=== PATIENT | female | born 1975 | race Caucasian/White ===

== ENCOUNTER → 2018-08-14 | Outpatient (CLI) | payer OTHER ==
[~2018-08-14] MED LIST: GADOTERATE 7.5 MMOL/15ML VIAL. IVP ONE; IBUP-1027 PO; L.AC1CAP6 PO; OMEP20CA10 PO; SUMA100T4 PO
--- NOTE | 2018-08-14 15:52 | KCIC ---
MRI of the Brain without and with Contrast 08/14/2018 Clinical History: Right arm numbness. Decreased sensation in finger tips. Progressive headaches. Right facial numbness. Technique: Unenhanced T1-weighted sagittal and axial and FLAIR, T2-weighted, gradient echo and diffusion-weighted axial images of the brain were obtained. After the intravenous administration of 12 cc of Gadavist, enhanced T1-weighted axial and coronal images of the brain were obtained. Findings: The ventricles and sulci are within normal limits in size and configuration. No area of abnormal signal intensity is seen involving the brain parenchyma. No abnormal area of contrast enhancement is seen. No extra-axial fluid collection is noted. There is no MRI evidence of acute ischemia/infarction. Mild mucosal thickening in seen scattered throughout the paranasal sinuses. There are minimal bilateral mastoid effusions. Normal flow voids are seen within the major vascular structures surrounding the brain parenchyma. Impression: 1. Negative MRI of the brain. 2. Mild paranasal sinus and mastoid disease. Electronically signed by: Gaurang Luna MD (08/14/2018 3:49 PM) [email or web address]
--- NOTE | 2018-08-14 15:56 | KCIC ---
MRI of the cervical spine without and with contrast 08/14/2018 CLINICAL HISTORY: Right arm numbness. Decreased sensation in finger tips. TECHNIQUE: Unenhanced T1-weighted, T2-weighted and inversion recovery sagittal and gradient echo, T2-weighted and T1-weighted axial images of the cervical spine were obtained. After the intravenous administration of 12 cc of Gadavist, enhanced T1-weighted sagittal and axial images of the cervical spine were obtained. FINDINGS: There is mild straightening of the normal cervical lordosis. Degenerative signal changes are seen involving the C2-3, C3-4 and C4-5 discs predominantly. The marrow signal of the visualized bony structures is within normal limits. The cervical spinal cord is normal morphology, position, and signal characteristics. No area of abnormal contrast enhancement is seen. On the axial images throughout the cervical spine, very mild degenerative changes are seen consisting of minimal to mild generalized disc bulges and mild degenerative changes involving the uncovertebral and facet joints. These findings do not result in significant central spinal canal or neural foraminal stenosis. IMPRESSION: 1. Very mild degenerative changes are seen involving the cervical spine as discussed above. These findings do not result in significant central spinal canal or neural foraminal stenosis. 2. No area of abnormal signal intensity or contrast enhancement is seen involving the cervical spinal cord. Electronically signed by: Gaurang Luna MD (08/14/2018 3:54 PM) [email or web address]
== END | disposition home or self-care (01) ==
LOC: KCIC MRI 13:13
PROVIDERS: ATTEND Psychiatry & Neurology Neurology
DX: M47.812 Spondylosis without myelopathy or radiculopathy, cervical region (principal); M40.292 Other kyphosis, cervical region; J34.89 Other specified disorders of nose and nasal sinuses; H74.8X1 Other specified disorders of right middle ear and mastoid
CPT/HCPCS: 70553; 72156; A9575